=== PATIENT | female | born 1940 | race Hispanic/Latino ===

== ENCOUNTER 2019-01-19 14:38 | Emergency (ER) | payer MEDICARE, MEDICAID ==
[2019-01-19 15:14] LABS: Bacteria/HPF 4+ HPF (None Seen); Bilirubin Negative (Negative); Blood, Urine 2+ (Negative); Clarity Clear (Clear); Glucose, Urine (Dipstick) 50 mg/dL (Negative); Leukocyte 250 Leu/uL (Negative); Nitrite Negative (Negative); Protein, Urine (Dipstick) 10 mg/dL (Neg-Trace); RBC/HPF 21-50 HPF (0-3); Squamous Epithelial 0-3 HPF (0-3); WBC/HPF 21-50 HPF (0-3)
[2019-01-19 15:53] LABS: #Eosinphils 0.2 thou/uL (0.0-0.7); #Lymphocytes 1.1 thou/uL (1.20-3.40); #Monocytes 0.3 thou/uL (0.11-0.59); #Neutrophils 2.7 thou/uL (1.40-6.50); %Basophils 0.6 % (0.0-1.0); %Lymphocytes 25.2 % (21.0-51.0); %Monocytes 7.7 % (0.0-10.0); %Neutrophils 62.5 % (42.0-75.0); Hemoglobin 11.6 g/dL (12.0-16.0); Mean Corpuscular Hemoglobin 31.2 pg (27.0-31.0); Mean Corpuscular Volume 89.2 fL (78.0-98.0); Mean Platelet Volume 8.7 fL (7.4-10.4); Platelet Count 150 thou/uL (130-400); RBC Distribution Width 11.2 % (11.5-14.5); Red Blood Cell (RBC) Count 3.73 mill/uL (4.20-5.40); White Blood Cell (WBC) Count 4.3 thou/uL (4.8-10.8)
[2019-01-19 16:19] LABS: ALT (SGPT) 10 U/L (8-55); AST (SGOT) 21 U/L (5-34); Albumin 3.8 g/dL (3.4-4.8); Alkaline Phosphatase 64 U/L (40-110); Anion Gap 13 mmol/L (10-20); BUN (Urea Nitrogen) 13 mg/dL (9.8-20.1); Bilirubin, Total 0.4 mg/dL (0.2-1.2); Calc. Creatinine Clearance 0 mL/min (70-130); Calcium 9.4 mg/dL (7.8-10.44); Carbon Dioxide 26 mmol/L (23-31); Chloride 105 mmol/L (98-107); Estimated GFR-MDRD 65; Globulin 2.5 g/dL (2.4-3.5); Glucose 95 mg/dL (83-110); Potassium 3.5 mmol/L (3.5-5.1); Protein, Total 6.3 g/dL (6.0-8.3); Sodium 140 mmol/L (136-145)
--- NOTE | 2019-01-19 17:08 | CT ---
CT OF ABDOMEN AND PELVIS PERFORMED WITHOUT CONTRAST ENHANCEMENT: 01/19/19 HISTORY: Diffuse lower abdominal pain x2 weeks. History of vaginal sling in 2013. The lung bases are clear of any infiltrative process. Small hiatal hernia is seen. The liver, spleen, pancreas, and gallbladder regions appear unremarkable given the limitations of a noncontrast study. Right and left adrenal glands are normal in appearance. Hypodensity involving the left kidney is 3.6 cm in size and most likely a cyst. There is also what is also felt to be parapelvic cyst formation on the left. No renal calculi are identified. No obstruction. No ureteral calculus. No significant [place] aortic or mesenteric adenopathy. CT OF PELVIS PERFORMED WITHOUT CONTRAST ENHANCEMENT: The appendix is normal. Some mild colonic diverticulosis is seen. No inflammatory process. No free fl uid is demonstrated. Bladder appears to be in appropriate position. IMPRESSION: 1. No acute findings of the abdomen or pelvis. 2. Colonic diverticulosis. 3. Left real cyst. 4. Arthritic changes of the spine. POS: [facility]
== END 2019-01-19 17:28 | disposition home or self-care (01) ==
LOC: ERS 14:38
DX: N39.0 Urinary tract infection, site not specified (principal); I10 Essential (primary) hypertension; K21.9 Gastro-esophageal reflux disease without esophagitis; M19.90 Unspecified osteoarthritis, unspecified site; E78.5 Hyperlipidemia, unspecified; E78.2 Mixed hyperlipidemia; F32.9 Major depressive disorder, single episode, unspecified; Z79.899 Other long term (current) drug therapy; Z79.52 Long term (current) use of systemic steroids
CPT/HCPCS: 36415; 74176; 80053; 81003; 81015; 85025; 87077; 87086; 87186

== ENCOUNTER 2021-02-03 17:26 | Observation (INO) | payer MEDICARE, MEDICAID ==
[2021-02-03 18:58] LABS: #Eosinphils 0.2 thou/uL (0.0-0.7); #Lymphocytes 1.4 thou/uL (1.20-3.40); #Monocytes 0.5 thou/uL (0.11-0.59); #Neutrophils 3.1 thou/uL (1.40-6.50); %Basophils 0.4 % (0.0-1.0); %Eosinophils 3.5 % (0.0-10.0); %Lymphocytes 26.5 % (21.0-51.0); %Monocytes 9.4 % (0.0-10.0); %Neutrophils 60.2 % (42.0-75.0); Hemoglobin 10.6 g/dL (12.0-16.0); Mean Corpuscular HGB CONC 33.9 g/dL (32.0-36.0); Mean Corpuscular Hemoglobin 29.7 pg (27.0-31.0); Mean Corpuscular Volume 87.7 fL (78.0-98.0); Mean Platelet Volume 9.4 fL (7.4-10.4); Platelet Count 135 thou/uL (130-400); RBC Distribution Width 12.8 % (11.5-14.5); Red Blood Cell (RBC) Count 3.56 mill/uL (4.20-5.40); White Blood Cell (WBC) Count 5.1 thou/uL (4.8-10.8)
[2021-02-03 19:19] LABS: ALT (SGPT) 14 U/L (8-55); AST (SGOT) 30 U/L (5-34); Albumin 3.8 g/dL (3.4-4.8); Alkaline Phosphatase 74 U/L (40-110); Anion Gap 11 mmol/L (10-20); BUN (Urea Nitrogen) 20 mg/dL (9.8-20.1); Bilirubin, Total 0.3 mg/dL (0.2-1.2); Calc. Creatinine Clearance 0 mL/min (70-130); Calcium 9.6 mg/dL (7.8-10.44); Carbon Dioxide 25 mmol/L (23-31); Chloride 106 mmol/L (98-107); Globulin 2.8 g/dL (2.4-3.5); Glucose 102 mg/dL (83-110); Potassium 4.3 mmol/L (3.5-5.1); Protein, Total 6.6 g/dL (5.8-8.1); Sodium 138 mmol/L (136-145)
[2021-02-03 19:42] LABS: CKMB 1.5 ng/mL (0-6.6)
[2021-02-03 20:36] LABS: Bacteria/HPF None Seen HPF (None Seen); Bilirubin Negative (Negative); Blood, Urine 1+ (Negative); Clarity Clear (Clear); Glucose, Urine (Dipstick) Normal (Negative); Ketone, Urine Negative (Negative); Leukocyte 75 Leu/uL (Negative); Nitrite Negative (Negative); Protein, Urine (Dipstick) Negative (Neg-Trace); Specific Gravity, Urine 1.007 (1.002-1.036); Squamous Epithelial 0-3 HPF (0-3); Transitional Epithelial 0-3 HPF (None Seen); Urobilinogen Normal mg/dL (Less than 2); WBC/HPF 0-3 HPF (0-3)
[2021-02-03] MEDS ORDERED: Ondansetron PF 4 MG/2 ML Vial IVP PRN (20:46)
[2021-02-03] MEDS ORDERED: Ondansetron ODT 4 MG TAB PO PRN (20:46)
[2021-02-03] MEDS ORDERED: Ketorolac Tromethamine 30 MG/ML VIAL IVP SCH (21:15)
[2021-02-03] MEDS ORDERED: Acetaminophen 325 MG TAB PO PRN (21:30)
[2021-02-03 22:17] LABS: Troponin I 0.042 ng/mL (< 0.028)
[2021-02-03 22:58] LABS: Hemoglobin A1c 5.1 % (4.0-6.0)
[2021-02-03 23:47] VITALS: BMI 28.9
[2021-02-04 01:21] LABS: Troponin I 0.035 ng/mL (< 0.028)
[2021-02-04 04:59] LABS: Cardiac Risk 4.5 (Less than 4.5)
[2021-02-04] MEDS: Enoxaparin Sodium 40 MG/0.4 ML SYRINGE SC SCH (10:56)
[2021-02-04] MEDS: Aspirin Chewable 81 MG TAB PO SCH (10:56)
[2021-02-04] MEDS: Lisinopril 10 MG TAB PO SCH (10:57)
[2021-02-04] MEDS ORDERED: Regadenoson 0.4 MG/5 ML SYRINGE ONE (12:01)
[2021-02-04 12:05] LABS: SARS-CoV-2 PCR by NAA Not Detected (NotDetected)
[2021-02-04] MEDS ORDERED: Acetaminophen 325 MG TAB PO PRN (16:22)
[2021-02-04] MEDS ORDERED: Ketorolac Tromethamine 30 MG/ML VIAL IVP SCH (20:15)
[2021-02-05] MEDS: Lisinopril 10 MG TAB PO SCH (08:47)
[2021-02-05] MEDS: Aspirin Chewable 81 MG TAB PO SCH (08:47)
[2021-02-05] MEDS: Enoxaparin Sodium 40 MG/0.4 ML SYRINGE SC SCH (08:48)
[2021-02-05 12:01] VITALS: BP 123/63; TEMP 97.8
== END 2021-02-05 14:30 | disposition home or self-care (01) ==
LOC: ERS 17:26 → INTOOBSV 19:49 → 2NO 19:49
PROVIDERS: ADMIT Student in an Organized Health Care Education/Training Program; ATTEND Student in an Organized Health Care Education/Training Program
DX: R07.89 Other chest pain (principal); G44.209 Tension-type headache, unspecified, not intractable; R00.1 Bradycardia, unspecified; R77.8 Other specified abnormalities of plasma proteins; R42 Dizziness and giddiness; I10 Essential (primary) hypertension; K21.9 Gastro-esophageal reflux disease without esophagitis; M81.0 Age-related osteoporosis without current pathological fracture; Z20.822 Contact with and (suspected) exposure to COVID-19; Z88.0 Allergy status to penicillin; Z88.5 Allergy status to narcotic agent; Z88.8 Allergy status to other drugs, medicaments and biological substances; Z91.041 Radiographic dye allergy status; Z87.11 Personal history of peptic ulcer disease; Z90.710 Acquired absence of both cervix and uterus; Z79.899 Other long term (current) drug therapy
CPT/HCPCS: 70450; 71045; 78452; 80061; 82553; 82728; 83036; 83605; 83880; 84484 ×3; 93005; 93017; 96372 ×2; 96374; 99285; A9500; G0378 ×2; U0003; U0005; 36415; 80053; 81003; 81015; 84443; 85025; J1650; J1885; J2785

== ENCOUNTER 2021-03-04 08:39 | Inpatient (IN) | payer MEDICARE, MEDICAID ==
[2021-03-04 09:42] LABS: #Eosinphils 0.2 thou/uL (0.0-0.7); #Lymphocytes 1.1 thou/uL (1.20-3.40); #Monocytes 0.3 thou/uL (0.11-0.59); %Basophils 0.3 % (0.0-1.0); %Eosinophils 3.3 % (0.0-10.0); %Lymphocytes 24.1 % (21.0-51.0); %Monocytes 7.1 % (0.0-10.0); %Neutrophils 65.1 % (42.0-75.0); Hemoglobin 10.8 g/dL (12.0-16.0); Mean Corpuscular HGB CONC 33.7 g/dL (32.0-36.0); Mean Corpuscular Hemoglobin 29.9 pg (27.0-31.0); Mean Corpuscular Volume 88.7 fL (78.0-98.0); Mean Platelet Volume 8.9 fL (7.4-10.4); Platelet Count 160 thou/uL (130-400); RBC Distribution Width 12.7 % (11.5-14.5); Red Blood Cell (RBC) Count 3.62 mill/uL (4.20-5.40); White Blood Cell (WBC) Count 4.6 thou/uL (4.8-10.8)
[2021-03-04] MEDS ORDERED: Pantoprazole 40 MG VIAL ONE (10:11)
[2021-03-04 10:12] LABS: ALT (SGPT) 12 U/L (8-55); AST (SGOT) 23 U/L (5-34); Albumin 3.6 g/dL (3.4-4.8); Alkaline Phosphatase 68 U/L (40-110); Anion Gap 11 mmol/L (10-20); BUN (Urea Nitrogen) 11 mg/dL (9.8-20.1); Bilirubin, Total 0.3 mg/dL (0.2-1.2); Calc. Creatinine Clearance 0 mL/min (70-130); Calcium 9.3 mg/dL (7.8-10.44); Carbon Dioxide 24 mmol/L (23-31); Chloride 106 mmol/L (98-107); Globulin 2.8 g/dL (2.4-3.5); Glucose 94 mg/dL (83-110); Lipase 21 U/L (8-78); Potassium 3.7 mmol/L (3.5-5.1); Protein, Total 6.4 g/dL (5.8-8.1); Sodium 137 mmol/L (136-145)
[2021-03-04 12:30] LABS: Bacteria/HPF Rare-Few HPF (None Seen); Bilirubin Negative (Negative); Blood, Urine 1+ (Negative); Clarity Clear (Clear); Glucose, Urine (Dipstick) Normal (Negative); Ketone, Urine Negative (Negative); Leukocyte Negative Leu/uL (Negative); Nitrite Negative (Negative); Protein, Urine (Dipstick) Negative (Neg-Trace); RBC/HPF 0-3 HPF (0-3); Specific Gravity, Urine 1.005 (1.002-1.036); Squamous Epithelial None Seen HPF (0-3); Urobilinogen Normal mg/dL (Less than 2); WBC/HPF None Seen HPF (0-3); pH, Urine 6.5 (5.0-9.0)
[2021-03-04 13:05] LABS: Troponin I 0.022 ng/mL (< 0.028)
[2021-03-04] MEDS ORDERED: Senokot S 8.6-50 MG TAB PO PRN (14:35)
[2021-03-04] MEDS ORDERED: Ondansetron PF 4 MG/2 ML Vial IVP PRN (14:35)
[2021-03-04] MEDS ORDERED: Acetaminophen 650 MG Suppository PR PRN (14:35)
[2021-03-04] MEDS ORDERED: Ondansetron ODT 4 MG TAB PO PRN (14:35)
[2021-03-04 14:54] LABS: SARS-CoV-2 NAA Rapid Test Not Detected (NotDetected)
[2021-03-04 16:00] LABS: Troponin I 0.036 ng/mL (< 0.028)
[2021-03-04 16:39] VITALS: BMI 28.1
[2021-03-04] MEDS ORDERED: Calcium Carbonate 500 MG ChewTAB PO PRN (17:24)
[2021-03-04] MEDS: Sucralfate 1 GM TAB PO SCH (21:53)
[2021-03-05] MEDS: Sodium Chloride 0.9% 1,000 ML IV SCH ×2 (06:38→21:17)
[2021-03-05] MEDS: Acetaminophen 325 MG TAB PO PRN ×2 (08:06→21:13)
[2021-03-05] MEDS: Sucralfate 1 GM TAB PO SCH ×4 (08:07→21:14)
[2021-03-05] MEDS: Lisinopril 10 MG TAB PO SCH (08:07)
[2021-03-05] MEDS: Multivit, Therapeutic 1 TAB PO SCH (08:08)
[2021-03-05] MEDS ORDERED: CALCIUM CARB PO SCH (09:00)
[2021-03-05] MEDS ORDERED: VITAMIN D3 PO SCH (09:00)
[2021-03-05] MEDS ORDERED: VIT K1 PO SCH (09:00)
[2021-03-05] MEDS ORDERED: Clindamycin/D5W 600 mg/50 ml Premix Bag ONE (12:39)
[2021-03-05] MEDS ORDERED: Levofloxacin 500 mg/D5W 100 ml Premix Bag ONE (12:39)
[2021-03-05] MEDS ORDERED: Midazolam HCl 2 mg/2 ml Vial ONE (12:42)
[2021-03-05] MEDS ORDERED: Fentanyl 100 MCG/2 ML VIAL ONE (12:42)
[2021-03-05] MEDS: Polyethylene Glycol 3350 17 GM Packet PO SCH (16:26)
[2021-03-05] MEDS: Metamucil PACK PO SCH (16:26)
[2021-03-05] MEDS: Enoxaparin Sodium 30 MG/0.3 ML SYRINGE SC SCH (18:35)
[2021-03-06] MEDS: Sodium Chloride 0.9% 1,000 ML IV SCH ×2 (04:02→10:16)
[2021-03-06] MEDS: Sucralfate 1 GM TAB PO SCH ×5 (06:03→21:47)
[2021-03-06] MEDS ORDERED: Acetaminophen 500 MG TAB PO SCH (08:00)
[2021-03-06] MEDS: Multivit, Therapeutic 1 TAB PO SCH (09:57)
[2021-03-06] MEDS: Lisinopril 10 MG TAB PO SCH (09:57)
[2021-03-06] MEDS: Enoxaparin Sodium 30 MG/0.3 ML SYRINGE SC SCH (09:58)
[2021-03-06] MEDS: Metamucil PACK PO SCH (09:59)
[2021-03-06] MEDS: Polyethylene Glycol 3350 17 GM Packet PO SCH (09:59)
[2021-03-06] MEDS: Acetaminophen 500 MG TAB PO SCH ×2 (14:52→21:48)
[2021-03-07] MEDS: Acetaminophen 500 MG TAB PO SCH (06:31)
[2021-03-07] MEDS: Lisinopril 10 MG TAB PO SCH (08:52)
[2021-03-07] MEDS: Sucralfate 1 GM TAB PO SCH ×2 (08:52→12:43)
[2021-03-07] MEDS: Multivit, Therapeutic 1 TAB PO SCH (08:52)
[2021-03-07] MEDS: Enoxaparin Sodium 30 MG/0.3 ML SYRINGE SC SCH (08:53)
[2021-03-07] MEDS: Metamucil PACK PO SCH (08:53)
[2021-03-07] MEDS: Polyethylene Glycol 3350 17 GM Packet PO SCH (08:54)
[2021-03-07 13:26] VITALS: BP 126/66; TEMP 97.9
== END 2021-03-07 14:40 | disposition home health service (06) | DRG 244 ==
LOC: ERS 08:39 → ERHOLD 11:17 → 2SW 14:03 → OBSVTOIN 03-05 16:56
PROVIDERS: ADMIT Student in an Organized Health Care Education/Training Program; ATTEND Student in an Organized Health Care Education/Training Program
PROC: 0JH606Z Insertion of Pacemaker, Dual Chamber into Chest Subcutaneous Tissue and Fascia, Open Approach (ICD-10-PCS; principal; 2021-03-05)
PROC: 02H63JZ Insertion of Pacemaker Lead into Right Atrium, Percutaneous Approach (ICD-10-PCS; 2021-03-05)
PROC: 02HK3JZ Insertion of Pacemaker Lead into Right Ventricle, Percutaneous Approach (ICD-10-PCS; 2021-03-05)
DX: I49.5 Sick sinus syndrome (principal); K29.60 Other gastritis without bleeding; Z20.822 Contact with and (suspected) exposure to COVID-19; Z66 Do not resuscitate; T39.015A Adverse effect of aspirin, initial encounter; D64.9 Anemia, unspecified; K21.9 Gastro-esophageal reflux disease without esophagitis; M19.90 Unspecified osteoarthritis, unspecified site; E78.5 Hyperlipidemia, unspecified; I10 Essential (primary) hypertension; M81.0 Age-related osteoporosis without current pathological fracture; K59.09 Other constipation; F32.A Depression, unspecified; Z79.82 Long term (current) use of aspirin; Z79.899 Other long term (current) drug therapy; Z90.710 Acquired absence of both cervix and uterus; Z88.5 Allergy status to narcotic agent; Z88.0 Allergy status to penicillin; Z91.041 Radiographic dye allergy status
CPT/HCPCS: 33208; 36415; 71045; 76705; 80053; 81003; 81015; 82553; 83690; 83880; 84484; 85025; 93005; 93010; 96374; C1785; C1898; C9113; G0378; J1650; J1956; J2250; J3010; J3370; J3490; J7050; U0002

== ENCOUNTER 2021-03-08 09:22 | Emergency (ER) | payer MEDICARE, MEDICAID ==
[2021-03-08 09:52] LABS: #Basophils 0.1 thou/uL (0.0-0.2); #Eosinphils 0.1 thou/uL (0.0-0.7); #Lymphocytes 0.9 thou/uL (1.20-3.40); #Monocytes 0.5 thou/uL (0.11-0.59); #Neutrophils 5.4 thou/uL (1.40-6.50); %Basophils 0.8 % (0.0-1.0); %Lymphocytes 12.4 % (21.0-51.0); %Neutrophils 77.8 % (42.0-75.0); Hemoglobin 11.4 g/dL (12.0-16.0); Mean Corpuscular HGB CONC 32.6 g/dL (32.0-36.0); Mean Corpuscular Hemoglobin 28.9 pg (27.0-31.0); Mean Corpuscular Volume 88.5 fL (78.0-98.0); Mean Platelet Volume 8.7 fL (7.4-10.4); Platelet Count 136 thou/uL (130-400); RBC Distribution Width 12.8 % (11.5-14.5); Red Blood Cell (RBC) Count 3.93 mill/uL (4.20-5.40)
[2021-03-08 10:18] LABS: ALT (SGPT) 16 U/L (8-55); AST (SGOT) 31 U/L (5-34); Albumin 3.7 g/dL (3.4-4.8); Alkaline Phosphatase 69 U/L (40-110); Anion Gap 9 mmol/L (10-20); BUN (Urea Nitrogen) 14 mg/dL (9.8-20.1); Bilirubin, Total 0.4 mg/dL (0.2-1.2); Calc. Creatinine Clearance 0 mL/min (70-130); Calcium 9.1 mg/dL (7.8-10.44); Carbon Dioxide 25 mmol/L (23-31); Chloride 107 mmol/L (98-107); Globulin 2.4 g/dL (2.4-3.5); Glucose 102 mg/dL (83-110); Potassium 3.3 mmol/L (3.5-5.1); Protein, Total 6.1 g/dL (5.8-8.1); Sodium 138 mmol/L (136-145)
[2021-03-08 10:34] LABS: CKMB 1.9 ng/mL (0-6.6)
[2021-03-08 12:22] LABS: Troponin I 0.042 ng/mL (< 0.028)
[2021-03-08] MEDS ORDERED: Potassium Chloride 20 MEQ TAB ONE (12:50)
== END 2021-03-08 12:55 | disposition home or self-care (01) ==
LOC: ERS 09:22
DX: R42 Dizziness and giddiness (principal); I10 Essential (primary) hypertension; K21.9 Gastro-esophageal reflux disease without esophagitis; E78.5 Hyperlipidemia, unspecified; E78.00 Pure hypercholesterolemia, unspecified; M19.90 Unspecified osteoarthritis, unspecified site
CPT/HCPCS: 36415; 71045; 80053; 82553; 84484; 85025; 93005

== ENCOUNTER 2021-03-13 18:30 | Inpatient (IN) | payer MEDICARE, MEDICAID ==
[2021-03-13 19:08] LABS: Bacteria/HPF None Seen HPF (None Seen); Bilirubin Negative (Negative); Blood, Urine 2+ (Negative); Clarity Clear (Clear); Glucose, Urine (Dipstick) 50 mg/dL (Negative); Ketone, Urine Negative (Negative); Leukocyte Negative Leu/uL (Negative); Mucous/LPF Rare LPF (<2+); Nitrite Negative (Negative); Protein, Urine (Dipstick) Negative (Neg-Trace); Specific Gravity, Urine 1.019 (1.002-1.036); Squamous Epithelial None Seen HPF (0-3); Urobilinogen Normal mg/dL (Less than 2); WBC/HPF 0-3 HPF (0-3)
[2021-03-13] MEDS ORDERED: Mag-Al 1200 mg/1200 mg/30 ML UDCUP ONE (19:45)
[2021-03-13] MEDS ORDERED: Lidocaine Viscous Sol 2% 15 ml UD Cup ONE (19:45)
[2021-03-13] MEDS ORDERED: Ondansetron PF 4 MG/2 ML Vial ONE ×2 (19:45→23:14)
[2021-03-13 20:00] LABS: #Eosinphils 0.1 thou/uL (0.0-0.7); #Lymphocytes 0.5 thou/uL (1.20-3.40); #Monocytes 0.4 thou/uL (0.11-0.59); #Neutrophils 7.8 thou/uL (1.40-6.50); %Basophils 0.1 % (0.0-1.0); %Eosinophils 0.6 % (0.0-10.0); %Lymphocytes 5.9 % (21.0-51.0); %Monocytes 4.1 % (0.0-10.0); %Neutrophils 89.3 % (42.0-75.0); Hemoglobin 10.9 g/dL (12.0-16.0); Mean Corpuscular HGB CONC 33.8 g/dL (32.0-36.0); Mean Corpuscular Hemoglobin 30.1 pg (27.0-31.0); Mean Platelet Volume 8.1 fL (7.4-10.4); Platelet Count 154 thou/uL (130-400); RBC Distribution Width 12.6 % (11.5-14.5); Red Blood Cell (RBC) Count 3.62 mill/uL (4.20-5.40); White Blood Cell (WBC) Count 8.7 thou/uL (4.8-10.8)
[2021-03-13 20:22] LABS: ALT (SGPT) 16 U/L (8-55); AST (SGOT) 25 U/L (5-34); Albumin 3.6 g/dL (3.4-4.8); Alkaline Phosphatase 70 U/L (40-110); Anion Gap 12 mmol/L (10-20); BUN (Urea Nitrogen) 15 mg/dL (9.8-20.1); Bilirubin, Total 0.4 mg/dL (0.2-1.2); Calc. Creatinine Clearance 0 mL/min (70-130); Calcium 9.8 mg/dL (7.8-10.44); Carbon Dioxide 26 mmol/L (23-31); Chloride 105 mmol/L (98-107); Globulin 2.7 g/dL (2.4-3.5); Glucose 119 mg/dL (83-110); Lipase 14 U/L (8-78); Potassium 3.9 mmol/L (3.5-5.1); Protein, Total 6.3 g/dL (5.8-8.1); Sodium 139 mmol/L (136-145)
[2021-03-13 20:44] LABS: CKMB 1.2 ng/mL (0-6.6)
[2021-03-13] MEDS ORDERED: Fentanyl 100 MCG/2 ML VIAL ONE (21:46)
[2021-03-14] MEDS ORDERED: Fentanyl 100 MCG/2 ML VIAL SLOW IVP PRN ×2 (00:20→08:28)
[2021-03-14] MEDS ORDERED: Ondansetron PF 4 MG/2 ML Vial IVP PRN ×2 (00:30→11:17)
[2021-03-14] MEDS ORDERED: Ondansetron ODT 4 MG TAB SL PRN (00:30)
[2021-03-14] MEDS ORDERED: Sodium Chloride 0.9% 1,000 ML IV SCH (00:30)
[2021-03-14] MEDS ORDERED: Pantoprazole 40 MG VIAL IVP SCH (00:45)
[2021-03-14 01:27] LABS: Troponin I 0.025 ng/mL (< 0.028)
[2021-03-14 02:23] LABS: Lactic Acid 1.5 mmol/L (0.5-2.2)
[2021-03-14 02:44] VITALS: BMI 28.2
[2021-03-14 04:10] LABS: #Lymphocytes 0.7 thou/uL (1.20-3.40); #Monocytes 0.3 thou/uL (0.11-0.59); #Neutrophils 7.9 thou/uL (1.40-6.50); %Eosinophils 0.2 % (0.0-10.0); %Lymphocytes 7.4 % (21.0-51.0); %Monocytes 3.8 % (0.0-10.0); %Neutrophils 88.7 % (42.0-75.0); Hemoglobin 11.1 g/dL (12.0-16.0); Mean Corpuscular HGB CONC 33.6 g/dL (32.0-36.0); Mean Corpuscular Volume 89.3 fL (78.0-98.0); Mean Platelet Volume 8.1 fL (7.4-10.4); Platelet Count 149 thou/uL (130-400); RBC Distribution Width 12.6 % (11.5-14.5); Red Blood Cell (RBC) Count 3.69 mill/uL (4.20-5.40); White Blood Cell (WBC) Count 8.9 thou/uL (4.8-10.8)
[2021-03-14 04:24] LABS: ALT (SGPT) 16 U/L (8-55); AST (SGOT) 27 U/L (5-34); Albumin 3.5 g/dL (3.4-4.8); Alkaline Phosphatase 67 U/L (40-110); Anion Gap 9 mmol/L (10-20); BUN (Urea Nitrogen) 15 mg/dL (9.8-20.1); Bilirubin, Total 0.5 mg/dL (0.2-1.2); Calc. Creatinine Clearance 54 mL/min (70-130); Calcium 9.8 mg/dL (7.8-10.44); Carbon Dioxide 30 mmol/L (23-31); Chloride 103 mmol/L (98-107); Globulin 2.9 g/dL (2.4-3.5); Glucose 122 mg/dL (83-110); Potassium 4.2 mmol/L (3.5-5.1); Protein, Total 6.4 g/dL (5.8-8.1); Sodium 138 mmol/L (136-145)
[2021-03-14 04:28] LABS: Troponin I 0.034 ng/mL (< 0.028)
[2021-03-14 08:32] LABS: Magnesium 1.8 mg/dL (1.6-2.6); Phosphorus 3.4 mg/dL (2.3-4.7)
[2021-03-14] MEDS ORDERED: Sodium Phosphate 15 MMOL in Sodium Chloride 0.9% 250 ML 250 ML IVPB SCH (09:00)
[2021-03-14] MEDS ORDERED: Magnesium 2 GM/50 ML 2 GM in Premix Bag 1 BAG IVPB SCH (09:00)
[2021-03-14] MEDS: Lactated Ringer's 1,000 ML IV SCH ×2 (09:48→17:05)
[2021-03-14] MEDS: Pantoprazole 40 MG VIAL IVP SCH (09:49)
[2021-03-14] MEDS: Calcium Carbonate 600 MG + Vit D TAB PO SCH ×2 (09:49→09:52)
[2021-03-14] MEDS: Lisinopril 10 MG TAB PO SCH ×2 (09:49→09:53)
[2021-03-14] MEDS: Multivit, Therapeutic 1 TAB PO SCH ×2 (09:49→09:53)
[2021-03-14 17:23] LABS: SARS-CoV-2 PCR by NAA Not Detected (NotDetected)
[2021-03-15] MEDS: Lactated Ringer's 1,000 ML IV SCH ×4 (00:43→17:03)
[2021-03-15] MEDS: Pantoprazole 40 MG VIAL IVP SCH (08:09)
[2021-03-15] MEDS: Calcium Carbonate 600 MG + Vit D TAB PO SCH (08:09)
[2021-03-15] MEDS: Lisinopril 10 MG TAB PO SCH (08:09)
[2021-03-15] MEDS: Multivit, Therapeutic 1 TAB PO SCH (08:09)
[2021-03-15] MEDS ORDERED: Acetaminophen 325 MG TAB PO PRN (17:59)
[2021-03-15] MEDS ORDERED: Acetaminophen 650 MG Suppository PR PRN (17:59)
[2021-03-16] MEDS: Lactated Ringer's 1,000 ML IV SCH ×2 (00:38→08:44)
[2021-03-16] MEDS: Multivit, Therapeutic 1 TAB PO SCH (08:44)
[2021-03-16] MEDS: Pantoprazole 40 MG VIAL IVP SCH (08:44)
[2021-03-16] MEDS: Calcium Carbonate 600 MG + Vit D TAB PO SCH (08:44)
[2021-03-16] MEDS: Lisinopril 10 MG TAB PO SCH (08:44)
[2021-03-16 11:45] VITALS: BP 145/75; TEMP 97.7
== END 2021-03-16 14:17 | disposition home or self-care (01) | DRG 390 ==
LOC: ERS 18:30 → 2NO 03-14 00:18 → T4-B 03-14 19:46
PROVIDERS: ADMIT Family Medicine; ATTEND Family Medicine
DX: K56.7 Ileus, unspecified (principal); Z66 Do not resuscitate; B34.9 Viral infection, unspecified; I10 Essential (primary) hypertension; F32.A Depression, unspecified; K21.9 Gastro-esophageal reflux disease without esophagitis; E78.5 Hyperlipidemia, unspecified; K29.70 Gastritis, unspecified, without bleeding; I49.5 Sick sinus syndrome; M19.90 Unspecified osteoarthritis, unspecified site; Z20.822 Contact with and (suspected) exposure to COVID-19; E55.9 Vitamin D deficiency, unspecified; M81.0 Age-related osteoporosis without current pathological fracture; Z88.5 Allergy status to narcotic agent; Z95.0 Presence of cardiac pacemaker; Z88.0 Allergy status to penicillin; Z91.041 Radiographic dye allergy status; Z90.710 Acquired absence of both cervix and uterus; Z90.721 Acquired absence of ovaries, unilateral
CPT/HCPCS: 36415; 71045; 74022; 74176; 74250; 76705; 80053; 81003; 81015; 82553; 83605; 83690; 83735; 84100; 84484; 85025; 93005; 96374; 96375; C9113; J2405; J3010; J3475; J7050; J7120; U0003; U0005

== ENCOUNTER 2022-02-02 17:31 | Emergency (ER) | payer MEDICARE, MEDICAID | END 2022-02-02 18:28 | disposition left against medical advice (07) | LOC: ERS 17:31 | DX: Z53.21 Procedure and treatment not carried out due to patient leaving prior to being seen by health care provider (principal) ==

== ENCOUNTER 2022-07-22 11:48 | Emergency (ER) | payer OTHER, MEDICAID ==
[2022-07-22] MEDS ORDERED: Meclizine HCl 25 MG TAB ONE (12:35)
[2022-07-22] MEDS ORDERED: Acetaminophen 500 MG TAB ONE (12:35)
[2022-07-22] MEDS ORDERED: Ondansetron PF 4 MG/2 ML Vial ONE (12:35)
[2022-07-22 12:36] LABS: #Eosinphils 0.1 thou/uL (0.0-0.7); #Lymphocytes 1.2 thou/uL (1.20-3.40); #Monocytes 0.3 thou/uL (0.11-0.59); %Basophils 0.8 % (0.0-1.0); %Eosinophils 2.2 % (0.0-10.0); %Lymphocytes 26.1 % (21.0-51.0); %Neutrophils 63.9 % (42.0-75.0); Hemoglobin 11.1 g/dL (12.0-16.0); Mean Corpuscular HGB CONC 34.4 g/dL (32.0-36.0); Mean Corpuscular Hemoglobin 30.3 pg (27.0-31.0); Mean Corpuscular Volume 87.9 fl (78.0-98.0); Mean Platelet Volume 8.4 fL (7.4-10.4); Platelet Count 153 10x3/uL (130-400); Red Blood Cell (RBC) Count 3.66 mill/uL (4.20-5.40); White Blood Cell (WBC) Count 4.8 10x3/uL (4.8-10.8)
[2022-07-22 13:03] LABS: ALT (SGPT) 13 U/L (8-55); AST (SGOT) 23 U/L (5-34); Albumin 3.8 g/dL (3.4-4.8); Alkaline Phosphatase 91 U/L (40-110); Anion Gap 13 mmol/L (10-20); BUN (Urea Nitrogen) 19 mg/dL (9.8-20.1); Bilirubin, Total 0.3 mg/dL (0.2-1.2); Calc. Creatinine Clearance 0 mL/min (70-130); Calcium 9.8 mg/dL (7.8-10.44); Carbon Dioxide 24 mmol/L (23-31); Chloride 108 mmol/L (98-107); Estimated GFR 66; Globulin 2.7 g/dL (2.4-3.5); Glucose 103 mg/dL (83-110); Potassium 3.5 mmol/L (3.5-5.1); Protein, Total 6.5 g/dL (5.8-8.1); Sodium 141 mmol/L (136-145)
[2022-07-22 14:13] LABS: Bacteria/HPF None Seen HPF (None Seen); Bilirubin Negative (Negative); Blood, Urine 3+ (Negative); Clarity Clear (Clear); Glucose, Urine (Dipstick) Normal (Negative); Ketone, Urine Negative (Negative); Leukocyte Negative Leu/uL (Negative); Nitrite Negative (Negative); Protein, Urine (Dipstick) Negative (Neg-Trace); Specific Gravity, Urine 1.009 (1.002-1.036); Squamous Epithelial None Seen HPF (0-3); Urobilinogen Normal mg/dL (Less than 2); WBC/HPF 0-3 HPF (0-3)
== END 2022-07-22 15:15 | disposition home or self-care (01) ==
LOC: ERS 11:48
DX: R51.9 Headache, unspecified (principal); R53.1 Weakness; I10 Essential (primary) hypertension; Z79.899 Other long term (current) drug therapy
CPT/HCPCS: 70450; 71045; 80053; 81003; 81015; 82553; 84484; 85025; 93005; 96374; J2405

== ENCOUNTER 2022-07-23 23:12 | Emergency (ER) | payer OTHER ==
[2022-07-24 00:14] LABS: #Eosinphils 0.1 thou/uL (0.0-0.7); #Lymphocytes 1.2 thou/uL (1.20-3.40); #Monocytes 0.3 thou/uL (0.11-0.59); #Neutrophils 2.4 thou/uL (1.40-6.50); %Basophils 0.6 % (0.0-1.0); %Eosinophils 2.5 % (0.0-10.0); %Lymphocytes 29.9 % (21.0-51.0); %Monocytes 8.3 % (0.0-10.0); %Neutrophils 58.6 % (42.0-75.0); Hemoglobin 10.2 g/dL (12.0-16.0); Mean Corpuscular Hemoglobin 30.3 pg (27.0-31.0); Mean Corpuscular Volume 89.3 fl (78.0-98.0); Mean Platelet Volume 8.1 fL (7.4-10.4); Platelet Count 137 10x3/uL (130-400); Red Blood Cell (RBC) Count 3.37 mill/uL (4.20-5.40); White Blood Cell (WBC) Count 4.1 10x3/uL (4.8-10.8)
[2022-07-24 00:37] LABS: ALT (SGPT) 12 U/L (8-55); AST (SGOT) 22 U/L (5-34); Albumin 3.4 g/dL (3.4-4.8); Alkaline Phosphatase 87 U/L (40-110); Anion Gap 12 mmol/L (10-20); BUN (Urea Nitrogen) 15 mg/dL (9.8-20.1); Bilirubin, Total 0.2 mg/dL (0.2-1.2); CK (CPK) 88 U/L (29-168); Calc. Creatinine Clearance 0 mL/min (70-130); Carbon Dioxide 22 mmol/L (23-31); Chloride 109 mmol/L (98-107); Estimated GFR 71; Globulin 2.4 g/dL (2.4-3.5); Glucose 108 mg/dL (83-110); Potassium 3.4 mmol/L (3.5-5.1); Protein, Total 5.8 g/dL (5.8-8.1); Sodium 140 mmol/L (136-145)
[2022-07-24 00:59] LABS: CKMB 1.5 ng/mL (0-6.6)
[2022-07-24] MEDS ORDERED: Lidocaine Viscous Sol 2% 15 ml UD Cup ONE (01:24)
[2022-07-24] MEDS ORDERED: Mag-Al 1200 mg/1200 mg/30 ML UDCUP ONE (01:24)
== END 2022-07-24 01:35 | disposition home or self-care (01) ==
LOC: ERS 23:12
DX: K29.00 Acute gastritis without bleeding (principal); F43.0 Acute stress reaction; D72.819 Decreased white blood cell count, unspecified; I10 Essential (primary) hypertension; Z79.899 Other long term (current) drug therapy
CPT/HCPCS: 36415; 80053; 82550; 82553; 83880; 84484; 85025; 93005

== ENCOUNTER 2022-08-01 17:56 | Emergency (ER) | payer OTHER ==
[2022-08-01] MEDS ORDERED: Dicyclomine 20 MG TAB ONE (18:49)
[2022-08-01] MEDS ORDERED: Sucralfate 1 GM/10 ML UDCUP ONE (18:49)
[2022-08-01] MEDS ORDERED: Famotidine/PF 20 mg/2ml Vial ONE (18:49)
[2022-08-01] MEDS ORDERED: diphenhydrAMINE 50 MG/ML VIAL ONE (18:49)
[2022-08-01] MEDS ORDERED: methylPREDNISolone Sod Succ 40 MG VIAL ONE (18:49)
[2022-08-01 18:52] LABS: #Eosinphils 0.1 thou/uL (0.0-0.7); #Monocytes 0.4 thou/uL (0.11-0.59); #Neutrophils 3.2 thou/uL (1.40-6.50); %Basophils 0.4 % (0.0-1.0); %Eosinophils 2.2 % (0.0-10.0); %Lymphocytes 23.6 % (21.0-51.0); %Monocytes 7.9 % (0.0-10.0); %Neutrophils 65.5 % (42.0-75.0); Hemoglobin 11.5 g/dL (12.0-16.0); Mean Corpuscular HGB CONC 32.1 g/dL (32.0-36.0); Mean Corpuscular Hemoglobin 28.4 pg (27.0-31.0); Mean Corpuscular Volume 88.4 fl (78.0-98.0); Mean Platelet Volume 10.8 fL (7.4-10.4); Platelet Count 202 10x3/uL (130-400); RBC Distribution Width 12.9 % (11.5-14.5); Red Blood Cell (RBC) Count 4.05 mill/uL (4.20-5.40); White Blood Cell (WBC) Count 4.9 10x3/uL (4.8-10.8)
[2022-08-01 18:55] LABS: Bacteria/HPF None Seen HPF (None Seen); Bilirubin Negative (Negative); Blood, Urine 2+ (Negative); Clarity Clear (Clear); Glucose, Urine (Dipstick) Normal (Negative); Ketone, Urine Negative (Negative); Leukocyte 75 Leu/uL (Negative); Nitrite Negative (Negative); Protein, Urine (Dipstick) Negative (Neg-Trace); RBC/HPF 0-3 HPF (0-3); Specific Gravity, Urine 1.005 (1.002-1.036); Squamous Epithelial None Seen HPF (0-3); Urobilinogen Normal mg/dL (Less than 2); pH, Urine 6.5 (5.0-9.0)
[2022-08-01 19:45] LABS: ALT (SGPT) 12 U/L (8-55); AST (SGOT) 22 U/L (5-34); Albumin 4.1 g/dL (3.4-4.8); Alkaline Phosphatase 99 U/L (40-110); Anion Gap 12 mmol/L (10-20); BUN (Urea Nitrogen) 16 mg/dL (9.8-20.1); Bilirubin, Total 0.4 mg/dL (0.2-1.2); Calc. Creatinine Clearance 0 mL/min (70-130); Calcium 9.8 mg/dL (7.8-10.44); Carbon Dioxide 25 mmol/L (23-31); Chloride 105 mmol/L (98-107); Estimated GFR 53; Globulin 2.6 g/dL (2.4-3.5); Glucose 105 mg/dL (83-110); Potassium 4.3 mmol/L (3.5-5.1); Protein, Total 6.7 g/dL (5.8-8.1); Sodium 138 mmol/L (136-145)
[2022-08-01 20:53] LABS: Lipase 27 U/L (8-78); Magnesium 1.9 mg/dL (1.6-2.6)
== END 2022-08-01 21:06 | disposition home or self-care (01) ==
LOC: ERS 17:56
DX: R10.9 Unspecified abdominal pain (principal); R42 Dizziness and giddiness; I10 Essential (primary) hypertension; Z79.899 Other long term (current) drug therapy
CPT/HCPCS: 36415; 70450; 71045; 74176; 80053; 81003; 81015; 83605; 83690; 83735; 83880; 84443; 84484; 85025; 93005; 96374; 96375; J1200; J2920; S0028